=== PATIENT | male | born 1960 | race Caucasian/White ===

== ENCOUNTER 2016-11-13 02:09 | Emergency (ER) | payer SELFPAY ==
[~2016-11-13] VITALS: Ht 180.3 cm; Wt 111.0 kg
[~2016-11-13 02:09] MED LIST: AMIT50TA3 PO; AMOX1TAB43 PO; CHOL100010 PO; CLR10 PO; EPP3/2 IM; GLIP-197 PO; LSN5 PO; MELO15TA4 PO; METF-384 PO; OMEP20TA PO; PREG75CA PO; PRZ/40 PO; ZCR80 PO
[2016-11-13 02:19] VITALS: TEMP 36.6; Ht 180.3 cm; Wt 111.0 kg
[2016-11-13] MEDS ORDERED: MoRPHine SULFATE 4 MG/ML 1 ML CARP\\VIAL IV STA (02:29)
[2016-11-13] MEDS ORDERED: SODIUM CHLORIDE 0.9% 1000ML 1,000 ML IV STA ×2 (02:29→03:46)
[2016-11-13] MEDS ORDERED: ONDANSETRON INJ 2 MG/ML 2 ML VIAL IV STA ×2 (02:29→04:19)
[2016-11-13] MEDS ORDERED: CHOL1000 PO (02:45)
[2016-11-13] MEDS ORDERED: PROCHLORPERAZINE 5 MG/ML 2 ML VIAL ONE (02:55)
[2016-11-13] MEDS ORDERED: KETOROLAC TROMETHAMINE 30 MG/ML VIAL IV STA (02:58)
[2016-11-13] MEDS ORDERED: FENTANYL CITRATE INJ 50 MCG/1 ML 2 ML VIAL IV ONE (03:00)
[2016-11-13] MEDS ORDERED: PROCHLORPERAZINE INJ 10 MG in SYRINGE 8 ML IV ONE (03:00)
[2016-11-13 03:23] LABS: BUN/CREATININE RATIO 5.6 (10-20); CALCIUM 9.9 mg/dl (8.5-10.1); CREATININE 0.97 mg/dl (0.60-1.40); POTASSIUM 3.3 mmol/L (3.5-5.1)
[2016-11-13 03:34] LABS: BETA-HYDROXYBUTYRATE 12.08 mg/dL (0.2-2.81)
[2016-11-13 03:44] LABS: BASO % 0.3 %; BASO ABS # 0.04 K/uL (0-0.2); COMPLETE YES; EOS % 0.1 %; HEMATOCRIT 44.7 % (42-52); IG% 0.4 %; LYMPH % 7.1 %; LYMPH ABS # 0.95 K/uL (1.2-3.4); MEAN CORPUSCULAR HEMOGLOBIN 28.1 pg (25-34); MEAN CORPUSCULAR HGB CONC 33.1 g/dl (32-36); MEAN PLATELET VOLUME 11.1 fL (7.4-10.4); MONO % 5.9 %; NEUT % 86.2 %; PLATELET COUNT 266 K/uL (130-400); RED BLOOD COUNT 5.26 M/uL (4.7-6.1); WHITE BLOOD COUNT 13.37 K/uL (4.8-10.8)
[2016-11-13 03:48] LABS: URINE APPEARANCE CLEAR (CLEAR); URINE BILIRUBIN NEG (NEG); URINE COLOR YELLOW; URINE NITRITE NEG (NEG); URINE PH 5.5 (4.5-7.5); URINE SPECIFIC GRAVITY 1.037 (1.000-1.030); UROBILINOGEN NEG (NEG); ZZUR CULT IF INDIC CLEAN CATCH YES
[2016-11-13 04:05] LABS: MANUAL MICROSCOPIC REQUIRED? NO; REVIEW REQ? NO
[2016-11-13] MEDS ORDERED: HYDR-5688 PO (04:11)
[2016-11-13] MEDS ORDERED: TAMS0.4C38 PO (04:11)
[2016-11-13] MEDS ORDERED: ONDA4TAB10 SL (04:11)
--- NOTE | 2016-11-13 04:12 | EMERGENCY ROOM VISIT NOTE ---
History Report prepared by Alyxibsabine: Tyrel Ryder Under the Supervision of: Dr. Preston Montesinos D.O. First contact with patient: 02:24 Chief Complaint: KIDNEY STONE Stated Complaint: KIDNEY STONE History of Present Illness The patient is a 56 year old male who presents to the Emergency Room with complaints of worsening right sided abdominal pain beginning several hours ago. He feels that he may have a kidney stones or appendicitis. He has a history of kidney stones. The patient also complains of diaphoresis and vomiting. He denies any back pain, urinary symptoms, or fevers. Source of History: patient Onset: several hours ago Position: abdomen (right sided) Timing: worsening Associated Symptoms: + diaphoresis, + vomiting, No fevers, No back pain Review of Systems See HPI for pertinent positives and negatives. A total of ten systems were reviewed and were otherwise negative. Past Medical & Surgical Medical Problems: (1) Cellulitis of right lower extremity (2) Depression (3) Diabetic neuropathy (4) DM type 2 (diabetes mellitus, type 2) (5) Failure of outpatient treatment (6) History of meningitis (7) History of viral meningitis (8) HTN (hypertension) (9) Kidney stone Surgical Problems: (1) H/O umbilical hernia repair (2) S/p removal of benign tumor from back Family History FH: cancer MOTHER (breast and colon) Social History Smoking Status: Former Smoker Alcohol Use: occasionally Drug Use: none Marital Status: in relationship Housing Status: lives alone Occupation Status: employed Current/Historical Medications Scheduled Amitriptyline Hcl (Amitriptyline Hcl), 50 MG PO HS Cholecalciferol (Vitamin D3), 1 TAB PO DAILY Fluoxetine Hcl (Prozac), 40 MG PO DAILY Glipizide (Glipizide Er), 5 MG PO QAM Lisinopril (Lisinopril), 5 MG PO DAILY Meloxicam (Meloxicam), 15 MG PO DAILY Metformin Hcl (Glucophage), 1,000 MG PO BID Pregabalin (Lyrica), 75 MG PO BID Simvastatin (Simvastatin), 80 MG PO HS Scheduled PRN Epinephrine (Epipen), 0.3 MG IM UD PRN for ALLERGIC REACTION Loratadine (Claritin), 10 MG PO DAILY PRN for Allergy Symptoms Omeprazole (Omeprazole), 20 MG PO DAILY PRN for Acid Reflux Allergies Coded Allergies: BEE STING (Verified Allergy, Severe, ANAPHYLAXIS, 7/29/17) Physical Exam Vital Signs Date Time Temp Pulse Resp B/P (MAP) Pulse Ox O2 Delivery O2 Flow Rate FiO2 11/13/16 02:19 36.6 94 18 161/90 97 Room Air Physical Exam GENERAL: Awake, alert, well-appearing, in no distress HENT: Normocephalic, atraumatic. Oropharynx unremarkable. EYES: Normal conjunctiva. Sclera non-icteric. NECK: Supple. No nuchal rigidity. FROM. No JVD. RESPIRATORY: Clear to auscultation. CARDIAC: Regular rate, normal rhythm. Extremities warm and well perfused. Pulses equal. ABDOMEN: Soft, non-distended. Mild RLQ tenderness to palpation. No rebound, rigidity, or guarding. No masses. RECTAL: Deferred. MUSCULOSKELETAL: Chest examination reveals no tenderness. The back is symmetrical on inspection without obvious abnormality. There is no CVA tenderness to palpation. No joint edema. LOWER EXTREMITIES: Calves are equal size bilaterally and non-tender. No edema. No discoloration. NEURO: Normal sensorium. No sensory or motor deficits noted. SKIN: No rash or jaundice noted. Medical Decision & Procedures ER Provider Diagnostic Interpretation: CT results per statrad and my review. CT ABDOMEN & PELVIS: IMPRESSION: Probably 1 mm calculus seen with the proximal right ureter (2-51) with minimal adjacent stranding and minimal hydronephrosis. Additional Findings: The visualized lower thorax is unremarkable. Decreased attenuation of the liver suggesting hepatic stenosis. The gallbladder is decompressed. The spleen, pancreas, and adrenal glands are unremarkable. Probable cyst within the left kidney. The appendix is unremarkable. Noninflamed colonic diverticulosis. No acute osseous abnormality. Laboratory Results 11/13/16 03:33 Red Blood Count 5.26, Mean Corpuscular Volume 85.0, Mean Corpuscular Hemoglobin 28.1, Mean Corpuscular Hemoglobin Concent 33.1, Mean Platelet Volume 11.1, Neutrophils (%) (Auto) 86.2, Lymphocytes (%) (Auto) 7.1, Monocytes (%) (Auto) 5.9, Eosinophils (%) (Auto) 0.1, Basophils (%) (Auto) 0.3, Neutrophils # (Auto) 11.51, Lymphocytes # (Auto) 0.95, Monocytes # (Auto) 0.79, Eosinophils # (Auto) 0.02, Basophils # (Auto) 0.04 11/13/16 02:47 Test 11/13/16 02:47 11/13/16 03:20 11/13/16 03:33 Anion Gap 11.0 mmol/L (3-11) Est Creatinine Clear Calc Drug Dose 110.3 ml/min Estimated GFR () 102.2 Estimated GFR (Non- 88.1 BUN/Creatinine Ratio 5.6 (10-20) Calcium Level 9.9 mg/dl (8.5-10.1) Total Bilirubin 0.4 mg/dl (0.2-1) Direct Bilirubin 0.1 mg/dl (0-0.2) Aspartate Amino Transf (AST/SGOT) 80 U/L (15-37) Alanine Aminotransferase (ALT/SGPT) 73 U/L (12-78) Alkaline Phosphatase 149 U/L (45-117) Total Protein 8.0 gm/dl (6.4-8.2) Albumin 3.5 gm/dl (3.4-5.0) Beta-Hydroxybutyric Acid 12.08 mg/dL (0.2-2.81) Urine Color YELLOW Urine Appearance CLEAR (CLEAR) Urine pH 5.5 (4.5-7.5) Urine Specific [place] 1.037 (1.000-1.030) Urine Protein NEG (NEG) Urine Glucose (UA) 3+ (NEG) Urine Ketones 1+ (NEG) Urine Occult Blood 2+ (NEG) Urine Nitrite NEG (NEG) Urine Bilirubin NEG (NEG) Urine Urobilinogen NEG (NEG) Urine Leukocyte Esterase NEG (NEG) Urine WBC (Auto) 10-30 /hpf (0-5) Urine RBC (Auto) >30 /hpf (0-4) Urine Hyaline Casts (Auto) 0 /lpf (0-5) Urine Epithelial Cells (Auto) 5-10 /lpf (0-5) Urine Bacteria (Auto) NEG (NEG) White Blood Count 13.37 K/uL (4.8-10.8) Red Blood Count 5.26 M/uL (4.7-6.1) Hemoglobin 14.8 g/dL (14.0-18.0) Hematocrit 44.7 % (42-52) Mean Corpuscular Volume 85.0 fL (80-100) Mean Corpuscular Hemoglobin 28.1 pg (25-34) Mean Corpuscular Hemoglobin Concent 33.1 g/dl (32-36) Platelet Count 266 K/uL (130-400) Mean Platelet Volume 11.1 fL (7.4-10.4) Neutrophils (%) (Auto) 86.2 % Lymphocytes (%) (Auto) 7.1 % Monocytes (%) (Auto) 5.9 % Eosinophils (%) (Auto) 0.1 % Basophils (%) (Auto) 0.3 % Neutrophils # (Auto) 11.51 K/uL (1.4-6.5) Lymphocytes # (Auto) 0.95 K/uL (1.2-3.4) Monocytes # (Auto) 0.79 K/uL (0.11-0.59) Eosinophils # (Auto) 0.02 K/uL (0-0.5) Basophils # (Auto) 0.04 K/uL (0-0.2) RDW Standard Deviation 41.5 fL (36.4-46.3) RDW Coefficient of Variation 13.4 % (11.5-14.5) Immature Granulocyte % (Auto) 0.4 % Immature Granulocyte # (Auto) 0.06 K/uL (0.00-0.02) Laboratory results reviewed by me Medications Administered Medications (Trade) Dose Ordered Sig/Bowen Route Start Time Stop Time Status Last Admin Dose Admin Sodium Chloride 1,000 ml @ 999 mls/hr Q1H1M STAT IV 11/13/16 02:29 11/13/16 03:29 DC 11/13/16 02:40 999 MLS/HR Morphine Sulfate (MoRPHine SULFATE INJ) 4 mg NOW STAT IV 11/13/16 02:29 11/13/16 02:31 DC 11/13/16 02:40 4 MG Ondansetron HCl (Zofran Inj) 4 mg NOW STAT IV 11/13/16 02:29 11/13/16 02:32 DC 11/13/16 02:40 4 MG Prochlorperazine Edisylate (Compazine Inj) 10 mg STK-MED ONCE .ROUTE 11/13/16 02:55 11/13/16 02:56 DC 11/13/16 03:06 10 MG Fentanyl Citrate (Fentanyl Inj) 50 mcg NOW ONCE IV 11/13/16 03:00 11/13/16 03:01 DC 11/13/16 03:06 50 MCG Ketorolac Tromethamine (Toradol Inj) 30 mg NOW STAT IV 11/13/16 02:58 11/13/16 02:59 DC 11/13/16 03:06 30 MG Sodium Chloride 1,000 ml @ 999 mls/hr Q1H1M STAT IV 11/13/16 03:46 11/13/16 04:46 11/13/16 03:53 999 MLS/HR ED Course 0227: The patient was evaluated in room B12B. A complete history and physical exam was performed. 0229: Ordered Zofran Inj 4 mg IV, Morphine Sulfate 4 mg IV, Sodium Chloride 1000 ml @ 999 mls/hr IV. 0258: Ordered Toradol Inj 30 mg IV, Fentanyl Inj 50 mcg IV, Prochlorperazine Edisylate 10 mg/Syringe 10 mL @ 5 mL/min IV. 0346: Ordered Sodium Chloride 1000 ml @ 999 mls/hr IV. 0410: I reevaluated the patient. Discussed results and discharge instructions: he verbalized understanding and agreement. The patient is ready for discharge. Medical Decision Differential diagnoses include but are not limited to; appendicitis, kidney stone, UTI, and gastroenteritis. Patient was given IV fluids IV pain medicine on repeat examination he feels much improved. Patient's blood sugar is elevated however he has a normal anion gap and no other signs of diabetic ketoacidosis. Patient was given over 2 L of fluid. Patient does state that he did not take his diabetic meds today. He was instructed to take his diabetic meds to lower his blood sugar as well. I discussed the findings with the patient is found to have a 1 mm proximal right ureteral stone will be treated for such Impression Primary Impression: Ureterolithiasis Scribe Attestation The scribe's documentation has been prepared under my direction and personally reviewed by me in its entirety. I confirm that the note above accurately reflects all work, treatment, procedures, and medical decision making performed by me. Departure Information Dispostion Home / Self-Care Prescriptions Ondasetron Odt (ZOFRAN ODT) 4 Mg Tab 4 MG SL Q6H for Nausea, #6 TAB Prov: Preston Montesinos, DO 11/13/16 Tamsulosin Hcl (FLOMAX) 0.4 Mg Cap 0.4 MG PO DAILY, #10 CAP Prov: Preston Montesinos, DO 11/13/16 Hydrocodone/Acetaminophen 5MG/325MG (Whitefish 5MG/325MG) Tab 1 TABLET PO Q6H Y for Pain for 5 Days, #10 TAB Prov: Preston Montesinos, DO 11/13/16 Referrals No Doctor, Assigned (PCP) Tae Parekh MD Patient Instructions Kidney Stones - [facility], [facility]
[2016-11-13] MEDS ORDERED: NovoLIN-R INSULIN PER UNIT CHARGE SC STA (04:19)
[2016-11-13] MEDS ORDERED: CEPH500C PO (04:51)
[2016-11-13 06:02] VITALS: BP 151/87; PULSE 76; O2SAT 99
--- NOTE | 2016-11-13 07:18 | DIAGNOSTIC IMAGING REPORT ---
CT OF THE ABDOMEN AND PELVIS WITHOUT CONTRAST CLINICAL HISTORY: Right lower quadrant pain. Right flank pain. COMPARISON STUDY: No previous studies for comparison. TECHNIQUE: Axial images of the abdomen and pelvis were obtained without IV contrast. Images were reviewed in the axial, sagittal, and coronal planes. A dose lowering technique was utilized adhering to the principles of ALARA. FINDINGS: Fatty infiltration of the liver with multiple areas of sparing within the gallbladder fossa are noted. Unenhanced images of the adrenal glands, spleen and pancreas are normal. A 2.2 cm lesion arising from the midpole of the left kidney is suboptimally assessed on this unenhanced exam but this measures near water attenuation. This likely reflects a cyst. A 2 mm proximal right ureteral calculus results in mild right hydronephrosis. There is moderate right periureteral infiltration. There is no evidence for a bowel obstruction. There is sigmoid diverticulosis without evidence for acute diverticulitis. There is no lymphadenopathy. There are no suspicious skeletal lesions. No additional urinary calculi are identified. IMPRESSION: 1. 2 mm proximal right ureteral calculus which results in mild right hydronephrosis. Right periureteral and perinephric infiltration. 2. 2.2 cm left renal lesion. This lesion is suboptimally assessed on this unenhanced exam but measures near water attenuation. This is indeterminate but likely reflects a cyst. 3. Fatty infiltration of the liver. Electronically signed by: Dionte Avilez M.D. 11/13/2016 7:17 AM Dictated Date/Time: 11/13/2016 7:11 AM
== END 2016-11-13 06:03 | disposition still patient (30) ==
LOC: C.EDB 02:10
DX: N20.1 Calculus of ureter (principal); Z87.442 Personal history of urinary calculi; F32.9 Major depressive disorder, single episode, unspecified; E11.43 Type 2 diabetes mellitus with diabetic autonomic (poly)neuropathy; I10 Essential (primary) hypertension; Z80.3 Family history of malignant neoplasm of breast; Z80.0 Family history of malignant neoplasm of digestive organs; Z87.891 Personal history of nicotine dependence; Z79.899 Other long term (current) drug therapy